=== PATIENT | male | born 1985 | race Two or more races ===

== ENCOUNTER 2025-01-27 20:28 | Emergency (ER) | payer OTHER ==
[~2025-01-27] VITALS: Ht 170.2 cm; Wt 67.0 kg
[2025-01-27] MEDS: IBUPROFEN 400 MG TABLET PO ONE (22:30)
[2025-01-28] MEDS ORDERED: DOXY-354 PO (00:02)
[2025-01-28] MEDS: PERTUSS(ACELL),DIPH,TET/PF 0.5 ML SYRINGE [ADULT] IM. ONE (00:13)
[2025-01-28] MEDS: DOXYCYCLINE HYCLATE 100 MG TABLET PO ONE (00:14)
[2025-01-28] MEDS: ACETAMINOPHEN 500 MG TABLET PO ONE (00:15)
[2025-01-28 00:27] VITALS: BP 137/78; PULSE 79; RESP 16; TEMP 97.8; O2SAT 99
== END 2025-01-28 00:32 | disposition home or self-care (01) ==
LOC: EMS 20:28
DX: L02.511 Cutaneous abscess of right hand (principal); L03.011 Cellulitis of right finger; X58.XXXA Exposure to other specified factors, initial encounter; Y93.89 Activity, other specified; Y92.89 Other specified places as the place of occurrence of the external cause; Y99.0 Civilian activity done for income or pay
CPT/HCPCS: 90471; 90715; 99284